=== PATIENT | male | born 1950 | race Caucasian/White ===

== ENCOUNTER 2024-04-24 11:22 | Day surgery (SDC) | payer BC, MEDICARE, SELFPAY ==
--- NOTE | 2024-04-24 12:19 | ITS.CL.CARDI ---
Excavating Machine Operator - Cardioversion
Cardioversion
Procedure Report:
Date of Procedure: April 24 2024
Procedure: Cardioversion
Indication: Symptomatic atrial fibrillation
Performing Physician: Teja Hay DO, FACC
Technique: The patient was brought to the holding area. Signed informed consent was obtained. A time out was called and performed. The patient was anesthetized by the anesthesia service. Anticoagulation status was reviewed and appropriate. R2 pads
were placed anteriorly and posteriorly. A 250 J synchronized biphasic shock restored normal sinus rhythm without significant bradycardia. There were no complications.
Conclusion: Uncomplicated cardioversion from atrial fibrillation to sinus rhythm.
Recommendation: Routine post cardioversion care. 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
== END 2024-04-24 12:50 | disposition home or self-care (01) ==
LOC: CATH 11:22
PROVIDERS: ATTENDING PHYSICIAN Nuclear Medicine Nuclear Cardiology; FAMILY PHYSICIAN Family Medicine; OTHER PHYSICIAN Internal Medicine Cardiovascular Disease
DX: I48.0 Paroxysmal atrial fibrillation (principal); G47.33 Obstructive sleep apnea (adult) (pediatric); Z87.891 Personal history of nicotine dependence; K21.9 Gastro-esophageal reflux disease without esophagitis; Z79.01 Long term (current) use of anticoagulants
CPT/HCPCS: 92960; 93005

== ENCOUNTER 2024-06-15 06:50 | Day surgery (SDC) | payer BC, MEDICARE, SELFPAY ==
[2024-06-15] MEDS: ELIQUIS 5 MG PO (07:55)
--- NOTE | 2024-06-15 13:49 | ITS.CL.CARDI ---
Voicer - Cardioversion
Cardioversion
Procedure Report:
Date of Procedure: 06/15/24
Procedure: Cardioversion
Indication: Symptomatic atrial fibrillation/flutter
Performing Physician: Shannan Franks DO [facility]
Anticoagulation: Eliquis
Technique: The patient was brought to the holding area. Signed informed consent was obtained. A time out was called and performed. The patient was anesthetized by the anesthesia service. Anticoagulation status was reviewed and appropriate. R2 pads
were placed anteriorly and posteriorly. A 200J synchronized biphasic shock restored normal sinus rhythm without significant bradycardia. There were no complications. Post procedure EKG sinus rhythm, heart rate 67 bpm with first-degree AV block and
left axis deviation.
Conclusion: Uncomplicated cardioversion from atrial fibrillation to sinus rhythm.
Recommendation: Routine post cardioversion care. Continue terminal computer operator anticoagulation.
== END 2024-06-15 08:35 | disposition home or self-care (01) ==
LOC: CATH 06:50
PROVIDERS: ATTENDING PHYSICIAN Internal Medicine Cardiovascular Disease; FAMILY PHYSICIAN Family Medicine; OTHER PHYSICIAN Internal Medicine Cardiovascular Disease
DX: I48.0 Paroxysmal atrial fibrillation (principal); I48.4 Atypical atrial flutter; G47.33 Obstructive sleep apnea (adult) (pediatric); Z79.01 Long term (current) use of anticoagulants
CPT/HCPCS: 92960; 93005

== ENCOUNTER 2024-09-13 08:06 | Day surgery (SDC) | payer BC, MEDICARE, SELFPAY ==
[2024-08-27 09:51] VITALS: BMI 43.2
[2024-08-27 10:22] LABS: % Basophils 1.2 % (0-2); % Eosinophils 6.6 % (0-6); % Immature Granulocytes 0.3 % (0-0.5); % Lymphocytes 22.4 % (20.5-51.1); % Monocytes 10.6 % (1.7-9.3); % Neutrophils 58.9 % (42.2-75.2); Absolute Basophils 0.1 10^3/uL (0-0.2); Absolute Eosinophils 0.5 10^3/uL (0-0.7); Absolute Lymphocytes 1.7 10^3/uL (1.2-3.4); Absolute Monocytes 0.8 10^3/uL (0.1-0.6); Absolute Neutrophils 4.4 10^3/uL (1.4-6.5); Hematocrit 47.8 % (39.0-52.0); Hemoglobin 15.6 g/dL (13.0-18.0); Mean Corp Hgb Conc. 32.6 g/dL (33.0-37.0); Mean Corpuscular Hgb 27.6 pg (27.0-31.0); Mean Corpuscular Volume 84.5 fL (80.0-94.0); Nucleated Red Blood Cells % 0 % (-); Platelet Count 244 10^3/uL (130-400); Red Blood Cell Count 5.66 10^6/uL (4.70-6.10); Red Cell Dist. Width 14.1 % (11.5-14.5); White Blood Cell Count 7.4 10^3/uL (4.8-10.8)
[2024-08-27 10:38] LABS: INR 1.01; PT 13.6 Sec (11.4-14.6)
[2024-08-27 11:14] LABS: ALT (SGPT) 18 U/L (0-50); AST (SGOT) 20 U/L (17-59); Albumin 3.9 g/dl (3.5-5.0); Alkaline Phosphatase 113 U/L (38-126); Blood Urea Nitrogen 20 mg/dl (9-20); Calcium 9.3 mg/dl (8.4-10.2); Carbon Dioxide 25 mmol/L (22-30); Chloride 106 mmol/L (98-107); Estimated Creatinine Clearance 105 ml/min; Glucose 106 mg/dl (70-99); Magnesium 2.2 mg/dl (1.6-2.3); Potassium 4.5 mmol/L (3.5-5.1); Sodium 138 mmol/L (135-145); Total Bilirubin 0.5 mg/dl (0.2-1.3); Total Protein 6.5 g/dl (6.3-8.2); eGFR > 60.00
--- NOTE | 2024-09-10 14:42 | OID.L.PAT ---
Pulmonary Nodule Pat Letter
- -
09/10/24
MEGHANN BORGES
[address]
[place], [place] [address]
Dear MEGHANN,
A pulmonary nodule was seen on an imaging study done by [facility]. This was reviewed by the [facility] Pulmonary Nodule Advisory Board and the following recommendation was made:
Recommendation: Based on current guidelines, no further follow up is necessary
If you have any questions, please do not hesitate to contact your primary care physician. If you are in need of a Physician, you can go to [email or web address] and click on 'Find a Provider'. Type 'Family Medicine' in the search.
Oncology Nurse Navigator
[facility]
[phone]
--- NOTE | 2024-09-10 14:43 | OID.L.REC ---
Pulmonary Nodule Follow Up
- Recommendation
09/10/24
Pulmonary Nodule Review Recommendations
Your patient, MEGHANN BORGES, had a pulmonary nodule seen on an imaging study done 08/27/24 in the [facility] Department.
This was reviewed by the [facility] Pulmonary Nodule Advisory Board and the following recommendation was made:
Recommendation: Based on current guidelines, no further follow up is necessary
If you have any questions please do not hesitate to contact us.
Sincerely,
Oncology Nurse Navigator
[facility]
[phone]
[2024-09-13] VITALS (15 sets, daily range): BP systolic 88–139; BP diastolic 52–89
[2024-09-13 11:07] LABS: ACT-LR - POC 300 Seconds (116-155)
[2024-09-13 11:30] LABS: ACT-LR - POC 351 Seconds (116-155)
--- NOTE | 2024-09-13 12:03 | ITS.CL.ABL ---
Train Brakeman - Ablation
Ablation
Procedure Report:
ELECTROPHYSIOLOGY ABLATION STUDY
DATE:: September 13, 2024���������������������������REFERRING: Dr. Yung Saha
INDICATION: Persistent supraventricular tachycardia in the form of atypical atrial flutter
HISTORY: See H and P.��Prior cardiac ablation x 3 in [place] and then ablation 4 an ablation 5 at [facility] with Dr. Figueroa for recurrent posterior wall left atrial flutter. Discussed options of convergent maze procedure and catheter-based
ablation patient opted for a repeat catheter ablation as the next step
ANTIARRHYTHMIC DRUG: Flecainide
PRE-PROCEDURE KAMLA: No thrombus on intracardiac ultrasound
PRESENTING RHYTHM: Macro reentry about the right pulmonary veins with entrainment demonstrating circuit just anterior to the right superior pulmonary vein and almost continuous activation at the base of the right inferior pulmonary vein
'TIME-OUT':��called and confirmed.
SEDATION/ANESTHESIA:��provided via the anesthesia department using general anesthesia (LMA).
INTRAVENOUS/ARTERIAL ACCESS:
Right femoral venous -10 Congolese
Left femoral venous -10 Congolese 6 Fr
Left femoral arterial - 5 Fr
Ultrasound guidance for bilateral femoral vein access was utilized by me to obtain access with demonstration of normal anatomy
CHADS-VASC Score:
HAS-Bled Score
PROCEDURE:
1.��A decapolar CS catheter was placed within the CS for mapping and pacing.��This was also used as the reference catheter for the 3-D map. The patient presented in atrial tachycardia�flutter cycle length to 60 to 70 ms with eccentric coronary
sinus activation. Right atrium is entrained with PPI greater than tachycardia cycle length greater than 100 ms. This was also the case for the lateral mitral isthmus through the distal coronary sinus. As such we proceeded with transseptal
puncture with some difficulty given multiple prior procedures but ultimately after left atrial access activation entrainment mapping of the entire left atrium demonstrated the mitral isthmus to be out of the circuit, patchy areas in the posterior
wall with continued electroanatomic voltage out of the circuit and almost continuous activation at the base of the right inferior pulmonary vein and just anterior to the right supra pulmonary vein near Jaime's bundle. Entrainment with PPI equal
to tachycardia cycle length just anterior the right superior pulmonary vein and entrainment within 30 to 40 ms at the base of the right inferior pulmonary vein suggested macro reentry about the right pulmonary veins. The mitral isthmus and valve
were out of the circuit suggesting the anterior left atrium not participating in the circuit. Ablation was performed as below. At the end of initial entrainment past the tachycardia accelerated to 230 ms with some variability but similar
activation mapping.
2. The intracardiac ultrasound catheter was positioned in the RA to identify the FO for targeting of transseptal puncture, assist��in identification of the pulmonary vein ostia, monitoring pre and post ablation pulmonary vein flow velocities,
monitoring for 'bubble' formation during RF application as a sign of thermal injury,��and to monitor for pericardial effusion during mapping and ablation procedure.���Left atrial size, LV ejection fraction, and pulmonary vein flows were monitored
pre and post ablation procedure. The other valves were inspected and found to be free of significant regurgitation or stenosis.
3.��Half of the calculated heparin bolus was administered prior to the first transeptal puncture.��Transseptal puncture was performed to diagnose RA and LA pressure so that safety of LA mapping and ablation could be further assessed, and to access
the left atrium and pulmonary veins for mapping and ablation.��This entailed advancing an 16.8 Congolese sheath, RF wire with dilator into the superior vena cava and withdrawing both (monitoring intracardiac ultrasound, fluoroscopy and tip pressure)
with the tip oriented toward the atrial septum.��The fossa ovalis was engaged (indicated by sudden displacement of the sheath tip as well as tenting of the fossa seen on intracardiac ultrasound).��Left atrial access required a pass with the
Brockenbrough needle extended.��Left atrial catheter position was confirmed by pressure monitoring (RA mean pressure 8 mm Hg and LA mean presure 12 mm Hg), LA saturation (99%),��as well as fluoroscopy.��The sheath was advanced over the dilator and
positioned in the left atrium.��This procedure was repeated for the Agilis sheath.��The remainder of the calculated heparin bolus was administered and heparin was
infused to maintain ACT at 300 -350 seconds throughout the case. After the pigtail radiofrequency wire access the left atrium we were able to advance a 16.8 Congolese sheath in the left atrium with some difficulty.
4.��RA pacing was performed via the proximal decapolar poles and LA pacing was performed via the distal decapolr poles.
5. A quadrapolar catheter was first positioned at the His position for His Bundle recording which was tagged via the 3-D Navex sytem, and then passed to the RVA for RV pacing and recording.
6. The multipolar catheter and the PFA Penta spline was placed in each of the LIPV, LSPV, RSPV and the RIPV.��There was chronic reconnection at the anterior chrystal of the left inferior pulmonary vein. There were patchy areas of electroanatomic
voltage in the posterior wall at the inferior portion outside the left inferior pulmonary vein and patchy fractionated signal in the posterior wall just outside the right pulmonary veins and anterior to the right superior pulmonary vein. The floor
had relatively healthy voltage.
7.��Next, a 3-D map was created using Navex.���A 3-D reconstructed CT image was compared to the 3-D Navex map to assist in anatomic interpretation, mapping and ablation.��The CT image and the NavX image were fused.
8. Total of 54 lesions were given in all of and basket pose to the left inferior pulmonary vein and flower post to the roof floor posterior wall interatrial septum and Jaime's bundle region of the left atrium. Tachycardia slowed and terminated
just anterior to the right superior pulmonary vein and then available signal in the roof floor posterior wall interatrial septum and left inferior pulmonary vein were targeted. Entrance and exit block was confirmed in all 4 pulmonary veins, the
roof, the floor, the posterior wall, and in the Jaime's bundle region. The patient was then noninducible for other tachyarrhythmia with atrial extrastimuli and burst pacing up to 6 extrastimuli. The patient converted to junctional rhythm with a
6-second postconversion pause which was answered with coronary sinus pacing at 800 ms with eventual resumption of sinus node function.
9. Sick sinus syndrome with abnormal sinus node recovery time postconversion of atrial flutter noted but overall sinus rates at 1500 to 1100 ms post cardioversion. AV conduction was normal.
TOTAL FLOURO TIME: 19.6 minutes
TOTAL RF DURATION: 0 minutes
REVERSAL OF HEPARIN: 40 mg of protamine, slow IV administration
COMPLICATIONS:
None
Intracardiac US shows no pericardial effusion post ablation.
SUMMARY:��
Complex left atrial mapping and ablation.
Reisolation of left inferior pulmonary vein at the anterior chrystal. Targeting of macro entry about the right pulmonary veins with PFA slowing and terminating the tachycardia anterior to the right supra pulmonary vein. The roof posterior wall and
floor of the left atrium were isolated with PFA lesions. IV nitroglycerin was given prior to any deliveries near the AV ring.
RECOMMENDATIONS:
1. Ambulate in 4 hours
2. Resume anticoagulation
3.��Discontinue flecainide as this may be proarrhythmic. Will consider class III antiarrhythmic drug therapy if he has recurrent arrhythmias. Continue diltiazem
4.��Out of bed 4 hours
Copy to:Dr. Socrates Saha
--- NOTE | 2024-09-13 16:05 | W.PN.UPDATE ---
Update Note
Progress Note Update
73 yo WM s/p PVI (same day). He denies cp, sob, ind[place] diet, EKG SR 1deg AVB then for a brief 30-45min had JR which resolved on own, b/l groins c/d/i no HT< soft. He will resume Eliquis tonight. He will stop flecainide and hold diltiazem tonight but
resume tomorrow evening. Activity restrictions reviewed. He will f/u [facility] FORMING FIXER in 3 mo. He is for d/c home after 5pm if groins stable.
[2024-09-13] MEDS: ANESTHETIC LOZENGE 1 LOZENGE PO (17:02)
== END 2024-09-13 17:26 | disposition home or self-care (01) ==
LOC: CATH 08:06
PROVIDERS: ATTENDING PHYSICIAN Internal Medicine Cardiovascular Disease; FAMILY PHYSICIAN Family Medicine
DX: I48.19 Other persistent atrial fibrillation (principal); I48.4 Atypical atrial flutter; R53.1 Weakness; Z79.01 Long term (current) use of anticoagulants; Z79.899 Other long term (current) drug therapy; G47.33 Obstructive sleep apnea (adult) (pediatric); K44.9 Diaphragmatic hernia without obstruction or gangrene; K21.9 Gastro-esophageal reflux disease without esophagitis; M10.9 Gout, unspecified; I44.0 Atrioventricular block, first degree; E66.01 Morbid (severe) obesity due to excess calories; Z68.41 Body mass index [BMI] 40.0-44.9, adult; Z87.891 Personal history of nicotine dependence; I10 Essential (primary) hypertension; R91.1 Solitary pulmonary nodule
CPT/HCPCS: C1732; C1894; C1730; C1769; C1892; 36415; 75572; 80053; 83735; 85025; 85347; 85610; 86850; 86900; 86901; 93005; 93656; 93657; Q9967

== ENCOUNTER → 2024-12-28 10:44 | Outpatient (REF) | payer BC, SELFPAY | LOC: RAD 10:44 | PROVIDERS: ATTENDING PHYSICIAN Nurse Practitioner; FAMILY PHYSICIAN Family Medicine | DX: I48.0 Paroxysmal atrial fibrillation (principal); R09.89 Other specified symptoms and signs involving the circulatory and respiratory systems | CPT/HCPCS: 93880 ==

== ENCOUNTER 2025-04-15 08:04 | Inpatient (IN) | payer BC, SELFPAY ==
[2025-04-10 10:43] LABS: Hematocrit 45.0 % (39.0-52.0); Hemoglobin 15.0 g/dL (13.0-18.0); Mean Corp Hgb Conc. 33.3 g/dL (33.0-37.0); Mean Corpuscular Volume 85.6 fL (80.0-94.0); Nucleated Red Blood Cells % 0 % (-); Platelet Count 240 10^3/uL (130-400); Red Cell Dist. Width 13.7 % (11.5-14.5)
[2025-04-10 10:48] LABS: Blood Urea Nitrogen 19 mg/dl (9-20); Calcium 8.9 mg/dl (8.4-10.2); Carbon Dioxide 26 mmol/L (22-30); Chloride 106 mmol/L (98-107); Glucose 137 mg/dl (70-99); Potassium 4.2 mmol/L (3.5-5.1); Sodium 141 mmol/L (135-145); eGFR > 60.00
[2025-04-15] VITALS (7 sets, daily range): BP systolic 116–140; BP diastolic 71–97; BMI 42.9
[2025-04-15 09:40] LABS: Hematocrit 44.0 % (39.0-52.0); Hemoglobin 14.7 g/dL (13.0-18.0); Mean Corp Hgb Conc. 33.4 g/dL (33.0-37.0); Mean Corpuscular Volume 84.9 fL (80.0-94.0); Platelet Count 242 10^3/uL (130-400); Red Cell Dist. Width 13.8 % (11.5-14.5)
--- NOTE | 2025-04-15 10:36 | CM ---
Addendum entered by Larisa Mixon 04/15/25 13:03:
Telephone call to his insurance to check on co-pay for Dofetilide 500 mg bid. His co-pay for a thirty day supply would be $5.00 and for a ninety day supply would be $10.00. Telephone call to [facility] who confirms they have Dofetilide 500
mcg in stock.
Original Note:
Reviewed chart. Met with Mr. Roland to review discharge plans. He states prior to admission he resides with his spouse in a two story home with eight steps to enter. He states he has a full flight of steps to get to bedroom/full bathroom. He
states he has a powder room on the first floor. He states prior to admission he was independent with ambulation and adls. He states he has a CPAP Machine at home. He states he has a prescription plan and uses [facility]. Will need to
check co-pay for Dofetilide once dose is started. Will need to have a three day script of Dofetilide to be sent to [facility] so a three day supply can go home with him. Will also check if his pharmacy has Dofetilide in stock. Medical work-up
in progress. The discharge plan is to return home with his spouse when medically stable.
--- NOTE | 2025-04-15 11:01 | PTCARENOTE ---
Patient admitted for tikosyn loading. EKG, done with baseline QTc of 470. Labs sent, admission assessment completed. Reviewed plan of care with the patient and he understands.
[2025-04-15 11:12] LABS: ALT (SGPT) 17 U/L (0-50); AST (SGOT) 20 U/L (17-59); Albumin 4.4 g/dl (3.5-5.0); Alkaline Phosphatase 107 U/L (38-126); Blood Urea Nitrogen 20 mg/dl (9-20); Calcium 9.1 mg/dl (8.4-10.2); Carbon Dioxide 28 mmol/L (22-30); Chloride 104 mmol/L (98-107); Estimated Creatinine Clearance 94 ml/min; Glucose 102 mg/dl (70-99); Magnesium 2.3 mg/dl (1.6-2.3); Potassium 5.0 mmol/L (3.5-5.1); Sodium 138 mmol/L (135-145); Total Protein 7.2 g/dl (6.3-8.2); eGFR > 60.00
--- NOTE | 2025-04-15 11:17 | W.CARD.TIKOS ---
Initiate Tikosyn
-
I verify that the patient has not taken any verapamil (Isoptin/Calan), ketoconazole (Nizoral), cimetidine (Tagamet), trimethoprim (Trimpex), trimethoprim/sulfamethoxazole (Bactrim), megesterol (Megace), prochlorperazine (Compazine),
hydrochlorothiazide (HCTZ), dolutegravir (Tivicay) or any Class I or Class III anti-arrhythmic within the last three days
AND
I verify that the patient has not taken amiodarone within the last THREE months, or that the patient's amiodarone plasma concentration is <0.3 mcg/mL.
Creatinine 1.0 mg/dL (0.7-1.3) 04/15/25 10:41
Estimated Creat Clear 94 ml/min 04/15/25 10:41
calculated creatinine clearance 129.8
Does patient have a Ventricular Conduction Abnormality: No
I have assessed the baseline QTc interval (using QT for heart rate less than 60 bpm) and deemed the patient is appropriate for Dofetilide therapy. I understand that Tikosyn is contraindicated if the QTc is >440msec (500msec in patients with
ventricular conduction abnormalities).
Manually measured QT 320 msec, QTc 435 msec
Baseline QTc (in msec): 435
QTc interval is greater than 440msec without conduction abnormality OR greater than 500msec with a conduction abnormality, but acceptable to proceed per Cardiology attending.
Reason for Administration with Prolonged QTc: Other Atrial Arrhythmia
Ordering Physician: Shannan Franks
--- NOTE | 2025-04-15 11:36 | W.PN.CARDCBS ---
Addendum entered and electronically signed by Navarro Tolbert MD 04/15/25 19:22:
74-year-old man admitted for dofetilide loading.
PMH/PSH: PAF with total of 6 ablations most recently pulsed field ablation August 2024, with atypical atrial flutter target as well, Obstructive sleep apnea, Morbid obesity, Hiatal hernia, hypertension, gout, GERD,
Outpatient meds: Allopurinol, apixaban 5 twice daily, cephalexin, diltiazem ER 180 mg twice daily, gabapentin, Claritin, omeprazole, sildenafil
119/71, pulse 76, respiratory rate 18, afebrile, sats 96%, pleasant, obese, head neck exam unremarkable, lungs are clear, tachycardic rate and rhythm, no obvious murmurs, extremities with some edema
ECG: Atypical atrial flutter with variable block, predominantly 2-1 QT difficult to assess given flutter
Hemoglobin 14.7 BUN and creatinine 20 and 1.0, potassium 5.0
Impression:
Persistent atypical atrial flutter now for dofetilide loading
Other diagnoses as below, reviewed in detail and agree, unless otherwise specified
Plan:
Proceed with dofetilide loading
Monitor QTc given diltiazem
Consider addition of beta-brady
Cardioversion on Tuesday if atrial flutter persists
Original Note:
Today's Communication / Plan
-
Proceed with dofetilide loading with close monitoring of QTc
Impression / Plan
-
PCP: Chris Garcias
Primary soda clerk: Socrates Saha
See 04/10/2025 H&P
Impression:
Paroxysmal symptomatic atrial fibrillation
-Pulsed field ablation 09/13/2024, also with targeting of atypical atrial flutter (6th ablation)
-Cardioversion 04/2024, 05/2024
-Ablations at [facility] x 3, first ablation a flutter, 2nd and 3rd PVI ( [id number])
- 4th Ablation Dr. Denise in [place]
-5th ablation Dr Carolina Sullivan
Previously on flecainide but had junctional rhythm post August 2024 ablation and meds stopped
Atypical atrial flutter
Palpitations
Obstructive sleep apnea, on CPAP
Hiatal hernia with torturous esophagus
Morbid obesity, BMI 43.23
Hypertension
GERD
Gout
First-degree AV block
Remote tobacco abuse
Left tarsal tunnel surgery February 2025, currently on Keflex through 04/18/2025
Previous cardiovascular studies:
Echo 02/2021: Normal EF and normal LA size
Stress test 10/2020: No ischemia
Plan:
-Recurrent atrial fibrillation despite multiple ablations, cardioversions, antiarrhythmic therapy in past
-Admitted for dofetilide loading with QTc monitoring
-Calculated creatinine clearance 129.8
-Manually calculated QTc 435 ms
-Start dofetilide 500 mg twice daily with EKG 2 hours post dose
-Continue outpatient diltiazem
-Continue Eliquis 5 mg twice daily
-Keep K greater than 4, mag greater than 2.
-K5.0, mag 2.3 04/15/2025
-Patient on Cephalexin status post tarsal tunnel surgery in February 2025. Due to stop med 04/18/2025. Reviewed interaction between dofetilide and cephalexin on Up-to-Date, advises close monitoring of QTc.
Progress Note - Investor Relations Director
Subjective
Date of Service: April 15, 2025
No palpitations, lightheadedness, shortness of breath, chest pain
Presents for elective admission for dofetilide loading
Objective
Labs:
04/15/25 09:20
04/15/25 10:41
Labs
Hgb 14.7 g/dL (13.0-18.0) 04/15/25 09:20
Hct 44.0 % (39.0-52.0) 04/15/25 09:20
Plt Count 242 10^3/uL (130-400) 04/15/25 09:20
Sodium 138 mmol/L (135-145) 04/15/25 10:41
Potassium 5.0 mmol/L (3.5-5.1) 04/15/25 10:41
BUN 20 mg/dl (9-20) 04/15/25 10:41
Creatinine 1.0 mg/dL (0.7-1.3) 04/15/25 10:41
Glucose 102 mg/dl (70-99) H 04/15/25 10:41
Vital Signs and I&O:
Vital Signs
Temp Pulse Resp BP Pulse Ox
97.8 F 150 20 140/75 95
04/15/25 11:07 04/15/25 10:15 04/15/25 11:07 04/15/25 09:04 04/15/25 11:07
Vital Signs
Temp Pulse Resp BP Pulse Ox
97.8 F 150 20 140/75 95
04/15/25 11:07 04/15/25 10:15 04/15/25 11:07 04/15/25 09:04 04/15/25 11:07
Physical Exam
Physical Exam
GEN: No distress, awake, Ox3
HEENT: supple, anicteric, mmm
LUNGS: CTA, no wheezes/rales
CV: Irregularly irregular, tachycardic no murmur
ABD: soft, BS+, NT/ND
EXT: No edema
NEURO: Gross non-focal
SKIN: Trace left lower extremity edema at ankle
[2025-04-15] MEDS: KEFLEX 500 MG PO ×3 (11:52→22:33)
[2025-04-15] MEDS: TIKOSYN 500 MCG PO ×2 (11:52→23:02)
--- NOTE | 2025-04-15 17:00 | PTCARENOTE ---
Patient converted to SR, EKG to confirm, QTc improved at 477, to continue current tikosyn dose.
[2025-04-15] MEDS: CARDIZEM CD 180 MG PO (17:26)
[2025-04-15] MEDS: ELIQUIS 5 MG PO (19:25)
[2025-04-15] MEDS: NEURONTIN 100 MG PO (22:33)
[2025-04-16] VITALS (8 sets, daily range): BP systolic 114–128; BP diastolic 67–74
--- NOTE | 2025-04-16 06:07 | PTCARENOTE ---
Pt AAOx3 and ambulating self in room. Denies any pain or SOB. 2nd dose of Tikosyn administered at 23:02, EKG obtained 2hrs post per protocol. QTc 524, pt remains NSR w/ prolonged qt. HR in the 60-80's at rest. Dr. Franks made aware via TT of EKG
result, cards team will evaluate in AM. Call topete in reach.
[2025-04-16 06:15] LABS: Blood Urea Nitrogen 18 mg/dl (9-20); Calcium 9.0 mg/dl (8.4-10.2); Carbon Dioxide 26 mmol/L (22-30); Chloride 106 mmol/L (98-107); Estimated Creatinine Clearance 104 ml/min; Glucose 106 mg/dl (70-99); Magnesium 2.3 mg/dl (1.6-2.3); Potassium 4.1 mmol/L (3.5-5.1); Sodium 135 mmol/L (135-145); eGFR > 60.00
--- NOTE | 2025-04-16 07:43 | W.PN.CARDCBS ---
Addendum entered and electronically signed by Teja Hay DO 04/16/25 08:55:
I saw and examined the patient.
The Fish And Wildlife Technician's note was reviewed and I agree with the note.
Comment:
Plan:
Cont Tikosyn load. Dose reduced to 250mcg Q12H.
Cont to monitor QTc
Reviewed with EP
Cont Cardizem and Eliquis
Cont Tubigrips and check pBNP with edema.
Original Note:
Today's Communication / Plan
-
in SR
continue tikosyn at reduced dose of 250mcg Q12H
continue cardizem, eliquis
Tubigrip stockings
check proBNP
Impression / Plan
-
PCP: Chris Garcias
Primary security systems technician: Socrates Saha
See 04/10/2025 H&P
Impression:
Paroxysmal symptomatic atrial fibrillation
-Pulsed field ablation 09/13/2024, also with targeting of atypical atrial flutter (6th ablation)
-Cardioversion 04/2024, 05/2024
-Ablations at [facility] x 3, first ablation a flutter, 2nd and 3rd PVI ( [id number])
-4th Ablation Dr. Denise in [place]
-5th ablation Dr Carolina Sullivan
-Previously on flecainide but had junctional rhythm post August 2024 ablation and meds stopped
-admission for tikosyn loading 04/15/25
Atypical atrial flutter
Palpitations
Obstructive sleep apnea, on CPAP
Hiatal hernia with torturous esophagus
Morbid obesity, BMI 43.23
Hypertension
GERD
Gout
First-degree AV block
Remote tobacco abuse
Left tarsal tunnel surgery February 2025, currently on Keflex through 04/18/2025
Previous cardiovascular studies:
Echo 02/2021: Normal EF and normal LA size
Stress test 10/2020: No ischemia
Plan:
-Recurrent atypical atrial flutter despite multiple ablations, cardioversions, antiarrhythmic therapy in past
-Admitted for dofetilide loading with QTc monitoring
-converted to SR and maintaining
-QTc prolonged this AM, follow. K/mag stable. will reduce dose to 250mcg Q12H
-on OP diltiazem at reduced dose of 180mg daily (was on BID dosing preadmission)
-continue eliquis
-Noted to have lower extremity edema, left greater than right. He did have left lower extremity surgery about 5 weeks ago. Add Tubigrip stockings. Check proBNP
-Patient on Cephalexin status post tarsal tunnel surgery in February 2025. Due to stop med 04/18/2025. Reviewed interaction between dofetilide and cephalexin on Up-to-Date, advises close monitoring of QTc.
Progress Note - Customer Pricing Manager
Subjective
Date of Service: April 16, 2025
no complaints
Objective
Labs:
04/15/25 09:20
04/16/25 05:40
Labs
Hgb 14.7 g/dL (13.0-18.0) 04/15/25 09:20
Hct 44.0 % (39.0-52.0) 04/15/25 09:20
Plt Count 242 10^3/uL (130-400) 04/15/25 09:20
Sodium 135 mmol/L (135-145) 04/16/25 05:40
Potassium 4.1 mmol/L (3.5-5.1) 04/16/25 05:40
BUN 18 mg/dl (9-20) 04/16/25 05:40
Creatinine 0.9 mg/dL (0.7-1.3) 04/16/25 05:40
Glucose 106 mg/dl (70-99) H 04/16/25 05:40
Vital Signs and I&O:
Vital Signs
Temp Pulse Resp BP Pulse Ox
97.7 F 67 20 124/74 97
04/16/25 05:32 04/16/25 06:00 04/16/25 05:32 04/16/25 05:32 04/16/25 05:32
Vital Signs
Temp Pulse Resp BP Pulse Ox
97.7 F 67 20 124/74 97
04/16/25 05:32 04/16/25 06:00 04/16/25 05:32 04/16/25 05:32 04/16/25 05:32
Intake & Output
04/13/25 04/14/25 04/15/25 04/16/25
07:59 07:59 07:59 07:59
Intake Total 360 / 360
Balance 360 / 360
Physical Exam
Physical Exam
GEN: No distress, awake, alert, oriented x3. Sitting in chair
HEENT: supple, anicteric, mmm, EOMI
LUNGS: CTA bilaterally, no wheezes/rales
CV: Reg, S1/S2, no murmur
ABD: soft, BS+, NT/ND
EXT: No cyanosis, clubbing. Trace edema of RLE and 1+ of LLE
NEURO: Gross non-focal
SKIN: Warm, pink, dry. No rash
--- NOTE | 2025-04-16 08:15 | PTCARENOTE ---
Assumed care of pt from prev nsg shift; Pt AAOx3 w/no c/o CP or SOB. Pt's VSS w/HR in the 50's-60's & BP 124/72 this AM. Pt is SB/SR on telemetry monitoring. Pt OOB to CH/amb freq in . Plan of care discussed w/pt. Pt w/call topete within reach & no
addtl needs at this time.
[2025-04-16] MEDS: KEFLEX 500 MG PO ×4 (10:02→21:27)
[2025-04-16] MEDS: TIKOSYN 250 MCG PO ×2 (10:02→21:28)
[2025-04-16] MEDS: CLARITIN 10 MG PO (10:03)
[2025-04-16] MEDS: ZYLOPRIM 300 MG PO (10:03)
[2025-04-16] MEDS: CARDIZEM CD 180 MG PO (10:03)
[2025-04-16] MEDS: PROTONIX 20 MG PO (10:03)
[2025-04-16] MEDS: ELIQUIS 5 MG PO ×2 (10:03→20:12)
--- NOTE | 2025-04-16 10:10 | CM ---
Reviewed chart. Met with Mr. Roland to review discharge plans. He states he is feeling well. We reviewed his co-pay for Dofetilide and he is agreeable to the co-pay. Telephone call to [facility] to check if they have Dofetilide 250 mcg in
stock. [facility] has it in stock. Prior to admission he resides with his spouse in a two story home with eight steps to enter. He has a full flight of steps to get to bedroom/full bathroom. He has a powder room on the first floor. Prior
to admission he was independent with ambulation and adls. He has a CPAP Machine at home. He has a prescription plan and uses [facility]. Will need to have a three day script of Dofetilide to be sent to [facility] so a three day
supply can go home with him. Medical work-up in progress. The discharge plan is to return home with his spouse when medically stable.
--- NOTE | 2025-04-16 20:48 | PTCARENOTE ---
Rec'd pt at change of shift. Pt AAO*3, VSS, and Sinus arrhythmia on TELE monitor. PT denies any pain or discomfort and updated on plan of care. Pt now resting with call topete in reach. See MAR and flowchart for full pt care and assessment.
[2025-04-16] MEDS: NEURONTIN 100 MG PO (21:27)
[2025-04-17 04:31] VITALS: BP 118/70
[2025-04-17 05:37] LABS: Blood Urea Nitrogen 19 mg/dl (9-20); Calcium 8.8 mg/dl (8.4-10.2); Carbon Dioxide 26 mmol/L (22-30); Chloride 105 mmol/L (98-107); Estimated Creatinine Clearance 104 ml/min; Glucose 99 mg/dl (70-99); Magnesium 2.3 mg/dl (1.6-2.3); Potassium 4.4 mmol/L (3.5-5.1); Sodium 138 mmol/L (135-145); eGFR > 60.00
--- NOTE | 2025-04-17 07:44 | W.PN.CARDCBS ---
Addendum entered and electronically signed by Bianca Acuna PA-C 04/17/25 10:40:
[id number]
Addendum entered and electronically signed by Socrates Saha MD 04/17/25 07:57:
patient seen and examined
agree with HEMA Acuna's notes and assessment
agree with HEMA Acuna's plan
SR on tele
Dose of dofetilide lowered yesterday
Exam:
aao x 3
non focal neurologically
jvp 6
cor regular
lungs ctab
no distress
remainder as per HEMA Acuna's note and assessment
Impression:
Paroxysmal symptomatic atrial fibrillation
-Pulsed field ablation 09/13/2024, also with targeting of atypical atrial flutter (6th ablation)
-Cardioversion 04/2024, 05/2024
-Ablations at [facility] x 3, first ablation a flutter, 2nd and 3rd PVI ( [id number])
-4th Ablation Dr. Denise in [place]
-5th ablation Dr Carolina Sullivan
-Previously on flecainide but had junctional rhythm post August 2024 ablation and meds stopped
-admission for tikosyn loading 04/15/25
Atypical atrial flutter
Palpitations
Obstructive sleep apnea, on CPAP
Hiatal hernia with torturous esophagus
Morbid obesity, BMI 43.23
Hypertension
GERD
Gout
First-degree AV block
Remote tobacco abuse
Left tarsal tunnel surgery February 2025, currently on Keflex through 04/18/2025
Previous cardiovascular studies:
Echo 02/2021: Normal EF and normal LA size
Stress test 10/2020: No ischemia
Plan:
-QTc stable since reducing Tikosyn dose 04/16 to 250 mcg every 12 hours
-Continue diltiazem at reduced dose of 180 mg daily
-Continue Eliquis
-proBNP was 59.5. Likely lower extremity edema secondary to left lower extremity surgery about 5 weeks ago. Patient on Cephalexin status post his tarsal tunnel surgery. Due to stop med 04/18/2025.
-plan for DC today if QTc stable after 5th dose of tikosyn
-OP cardiac follow up arranged
Original Note:
Today's Communication / Plan
-
continue tikosyn 250mcg Q12H
QTc stable
continue cardizem, eliquis
plan for DC after 5th dose today
OP cardiac follow up arranged
total DC time >30 minutes
Impression / Plan
-
PCP: Chris Garcias
Primary java user interface developer: Socrates Saha
See 04/10/2025 H&P
Impression:
Paroxysmal symptomatic atrial fibrillation
-Pulsed field ablation 09/13/2024, also with targeting of atypical atrial flutter (6th ablation)
-Cardioversion 04/2024, 05/2024
-Ablations at [facility] x 3, first ablation a flutter, 2nd and 3rd PVI ( [id number])
-4th Ablation Dr. Denise in [place]
-5th ablation Dr Carolina Sullivan
-Previously on flecainide but had junctional rhythm post August 2024 ablation and meds stopped
-admission for tikosyn loading 04/15/25
Atypical atrial flutter
Palpitations
Obstructive sleep apnea, on CPAP
Hiatal hernia with torturous esophagus
Morbid obesity, BMI 43.23
Hypertension
GERD
Gout
First-degree AV block
Remote tobacco abuse
Left tarsal tunnel surgery February 2025, currently on Keflex through 04/18/2025
Previous cardiovascular studies:
Echo 02/2021: Normal EF and normal LA size
Stress test 10/2020: No ischemia
Plan:
-Recurrent atypical atrial flutter despite multiple ablations, cardioversions, antiarrhythmic therapy in past
-Admitted for dofetilide loading with QTc monitoring
-Remains in sinus rhythm with PACs and 1 4 beat run of NSVT on review of telemetry overnight
-K/mag stable
-QTc stable since reducing Tikosyn dose 04/16 to 250 mcg every 12 hours
-Continue diltiazem at reduced dose of 180 mg daily
-Continue Eliquis
-proBNP was 59.5. Likely lower extremity edema secondary to left lower extremity surgery about 5 weeks ago. Patient on Cephalexin status post his tarsal tunnel surgery. Due to stop med 04/18/2025.
-plan for DC today if QTc stable after 5th dose of tikosyn
-OP cardiac follow up arranged
Progress Note - Police Officer Booking
Subjective
Date of Service: April 17, 2025
no issues overnight
Objective
Labs:
04/15/25 09:20
04/17/25 04:37
Labs
Hgb 14.7 g/dL (13.0-18.0) 04/15/25 09:20
Hct 44.0 % (39.0-52.0) 04/15/25 09:20
Plt Count 242 10^3/uL (130-400) 04/15/25 09:20
Sodium 138 mmol/L (135-145) 04/17/25 04:37
Potassium 4.4 mmol/L (3.5-5.1) 04/17/25 04:37
BUN 19 mg/dl (9-20) 04/17/25 04:37
Creatinine 0.9 mg/dL (0.7-1.3) 04/17/25 04:37
Glucose 99 mg/dl (70-99) 04/17/25 04:37
Vital Signs and I&O:
Vital Signs
Temp Pulse Resp BP Pulse Ox
97.8 F 63 16 118/70 97
04/17/25 04:31 04/17/25 05:00 04/17/25 04:31 04/17/25 04:31 04/17/25 04:31
Vital Signs
Temp Pulse Resp BP Pulse Ox
97.8 F 63 16 118/70 97
04/17/25 04:31 04/17/25 05:00 04/17/25 04:31 04/17/25 04:31 04/17/25 04:31
Intake & Output
04/14/25 04/15/25 04/16/25 04/17/25
07:59 07:59 07:59 07:59
Intake Total 360 / 360 1200 / 1200
Balance 360 / 360 1200 / 1200
Physical Exam
Physical Exam
GEN: No distress, awake, alert, oriented x3
HEENT: supple, anicteric, mmm, eomi
LUNGS: CTA B/L, no wheezes/rales
CV: Reg, S1/S2, no murmur
ABD: soft, BS+, NT/ND
EXT: No cyanosis, clubbing, edema
NEURO: Gross non-focal
SKIN: Warm, pink, dry. No rash
--- NOTE | 2025-04-17 08:00 | PTCARENOTE ---
Assumed care of pt from prev nsg shift; Pt AAOx3 w/no c/o CP or SOB. Pt's VSS w/HR in the 50's-60's & BP 127/73 this AM. Pt is SB/SR on telemetry monitoring. Pt OOB to CH/amb freq in . Plan of care discussed w/pt. Pt w/call topete within reach & no
addtl needs at this time.
[2025-04-17 08:04] VITALS: BP 127/73
[2025-04-17] MEDS: CLARITIN 10 MG PO (08:25)
[2025-04-17] MEDS: ZYLOPRIM 300 MG PO (08:25)
[2025-04-17] MEDS: TIKOSYN 250 MCG PO (08:25)
[2025-04-17] MEDS: CARDIZEM CD 180 MG PO (08:25)
[2025-04-17] MEDS: ELIQUIS 5 MG PO (08:25)
[2025-04-17] MEDS: PROTONIX 20 MG PO (08:25)
[2025-04-17] MEDS: KEFLEX 500 MG PO (08:25)
--- NOTE | 2025-04-17 09:34 | CM ---
Reviewed chart. Met with Mr. Roland. He states he is feeling well and maybe able to go home soon. Sent the three day script for Dofetilide to [facility] to be filled. Prior to admission he resides with his spouse in a two story home with eight
steps to enter. He has a full flight of steps to get to bedroom/full bathroom. He has a powder room on the first floor. Prior to admission he was independent with ambulation and adls. He has a CPAP Machine at home. He has a prescription plan
and uses [facility] Medical work-up in progress. The discharge plan is to return home with his spouse when medically stable.
--- NOTE | 2025-04-17 10:12 | W.DS.TRANS ---
DC Summary - Public Safety Officer
-
Discharge Instructions:
Discharge Diagnosis/Procedures afib, tikosyn load
Diet As tolerated
Activity As tolerated
Driving Restrictions As prior to admission
Instructions:
Stand-Alone Forms:
Changes to Home Medications: Yes
Discharge Medications:
DC Medications w/original date entered in [employer]
allopurinol 300 mg tablet 300 mg PO DAILY Gout 04/09/25
apixaban 5 mg tablet (Eliquis) 5 mg PO BID Blood Clot Prevention/Tx 04/09/25
loratadine 10 mg tablet 10 mg PO DAILY Allergies 04/09/25
omeprazole 20 mg capsule,delayed release 20 mg PO DAILY Gastrointestinal Issue 04/09/25
sildenafil 25 mg tablet 25 mg PO DAILY PRN prn 04/09/25
fluticasone propionate 50 mcg/actuation nasal spray,suspension 1 spray intranasal DAILY PRN allergies 04/15/25
gabapentin 100 mg capsule 100 mg PO HS Neurological Condition 04/15/25
ketotifen fumarate 0.025 % (0.035 %) eye drops (Zaditor) 1 drp ophthalmic (eye) Q12H PRN allergies 04/15/25
psyllium 500 mg capsule 0.52 g PO DAILY Constipation 04/15/25
cephalexin 500 mg capsule 500 mg PO QID Infection #1 cap 04/17/25
diltiazem HCl 180 mg capsule,extended release 24 hr 180 mg PO DAILY #1 cap 04/17/25
dofetilide 250 mcg capsule 250 mcg PO Q12 #60 caps 04/17/25
Home Medication Changes
tikosyn is new
diltiazem dose reduced
Pending Results: No
[2025-04-17 11:10] VITALS: BP 152/75
[2025-04-17] MEDS: FLUZONE HIGH-DOSE 2025-26 0.5 ML IM (12:04)
[2025-04-17] MEDS: PREVNAR 20 0.5 ML IM (12:04)
--- NOTE | 2025-04-17 12:45 | PTCARENOTE ---
Administered pt's flu shot & pneumovax prior to D/C as ordered. D/C'd pt's IV line & monitor tech. Discussed D/C instructions w/pt & spouse. Pt left w/3 day Tikosyn prescription as ordered & personal belongings incl cell phone & computer. Pt
escorted out ambulating by staff w/spouse driving pt home.
== END 2025-04-17 13:00 | disposition home or self-care (01) | DRG 309 ==
LOC: IVU 08:04
PROVIDERS: Nurse Practitioner; Physician Assistant Medical; ADMITTING PHYSICIAN Internal Medicine Cardiovascular Disease; ATTENDING PHYSICIAN Internal Medicine Cardiovascular Disease; FAMILY PHYSICIAN Family Medicine
PROC: 3E02340 Introduction of Influenza Vaccine into Muscle, Percutaneous Approach (ICD-10-PCS; 2025-04-17)
DX: I48.0 Paroxysmal atrial fibrillation (principal); Z68.41 Body mass index [BMI] 40.0-44.9, adult; I48.4 Atypical atrial flutter; G47.33 Obstructive sleep apnea (adult) (pediatric); K44.9 Diaphragmatic hernia without obstruction or gangrene; E66.01 Morbid (severe) obesity due to excess calories; I10 Essential (primary) hypertension; K21.9 Gastro-esophageal reflux disease without esophagitis; I44.0 Atrioventricular block, first degree; Z87.891 Personal history of nicotine dependence; Z79.01 Long term (current) use of anticoagulants; Z23 Encounter for immunization
CPT/HCPCS: 80048; 80053; 83735; 83880; 85025; 85027; 87070; 90662; 90677; 93005; G0008; G0009